=== PATIENT | male | born 1940 | race Caucasian/White ===

== ENCOUNTER 2016-11-03 10:44 | Inpatient (IN) | payer OTHER ==
[~2016-11-03] VITALS: Ht 165.1 cm; Wt 47.1 kg
[~2016-11-03 10:44] MED LIST: AMOXICILLIN500 MG PO; BACTRIM,SEPT1 TABLET PO; BENZONATATE100 MG PO; CEFTIN500 MG PO; CHERATUSSIN AC473 ML PO; CICLOPIROX45 GM TP; CLONAZEPAM1 MG PO; COLACE100 MG PO; ECOTRIN325 MG PO; Ecotrin PO; FLOMAX0.4 M1 PO; IBUPROFEN800 MG PO; JOCK ITCH15 GM TP; LISINOPRIL2.5 MG PO; METFORMIN HCL1000 M1 PO; METFORMIN HCL500 MG PO; MULTIVITAMIN1 EAC2 PO; PHENAZOPYRIDIN200 MG PO; POVIDONE IODINE TP; Q-TUSSIN DM SY240 ML PO; RISPERDAL1 MG PO; RISPERDAL2 M1 PO; RISPERDAL2 MG PO; TAMSULOSIN HCL0.4 MG PO; TYLENOL REGULA325 MG PO; VASELINE454 GM TP; ZESTRIL2.5 MG PO; [UNRECOGNIZED DRUG - OTHER] PO
[2016-11-03 13:21] LABS: EOSINOPHIL (%) 0.3 % (0-5); HEMATOCRIT 36.2 % (38.0-50.0); IMMATURE GRANULOCYTE (%) 0.2 % (0.0-0.7); IMMATURE GRANULOCYTE COUNT 0.2 K/uL; LYMPHOCYTE COUNT 1.6 K/uL (1.0-2.8); MCH 31.2 PG (29.0-34.0); MCHC 34.8 G/DL (30.0-36.0); MCV 89.6 FL (86-99); MEAN PLAT.VOLUME 9.9 uM^3 (9.0-12.4); MONOCYTE (%) 6.2 % (3-12); MONOCYTE COUNT 0.8 K/uL (0-0.8); NEUTROPHIL (%) 80.5 % (45-76); PLATELET COUNT 173 K/uL (156-360); RBC DIS.WIDTH-CV 13.2 % (11.8-14.6); RBC DIS.WIDTH-SD 42.9 % (39-53); RED BLOOD COUNT 4.04 M/uL (4.00-5.50); WHITE BLOOD COUNT 12.5 K/uL (4.1-10.2)
[2016-11-03 13:31] LABS: CHLORIDE 99 mEq/L (99-109); POTASSIUM 3.7 mEq/L (3.7-5.4); SODIUM 133 mEq/L (136-147)
[2016-11-03 13:33] LABS: GLUCOSE 165 mg/dL (70-99)
[2016-11-03 13:34] LABS: ANION GAP 11 MEQ/L (2-14)
[2016-11-03 13:36] LABS: GFR ESTIMATE (CALCULATED) > 59 mL/min/
[2016-11-03 13:37] LABS: UREA NITROGEN (BUN) 18 mg/dL (9-23)
[2016-11-03 13:53] LABS: INTER. NORMALIZED RATIO 1.1; PROTHROMBIN TIME 11.1 (9.2-11.2); PTT 27.5 (25-32)
[2016-11-03] MEDS ORDERED: PROSCAR5 MG PO (14:23)
[2016-11-03] MEDS ORDERED: GLUCOPHAGE XR,500 MG PO (14:25)
[2016-11-03] MEDS ORDERED: INVOKANA300 MG PO (14:25)
[2016-11-03] MEDS ORDERED: SILTUSSIN100 MG/51 PO (14:26)
[2016-11-03 16:20] LABS: EOSINOPHIL (%) 0 % (0-5); HEMATOCRIT 36.3 % (38.0-50.0); IMMATURE GRANULOCYTE (%) 0.2 % (0.0-0.7); IMMATURE GRANULOCYTE COUNT 0.3 K/uL; LYMPHOCYTE COUNT 0.7 K/uL (1.0-2.8); MCH 31.9 PG (29.0-34.0); MCHC 35.3 G/DL (30.0-36.0); MCV 90.5 FL (86-99); MEAN PLAT.VOLUME 9.8 uM^3 (9.0-12.4); MONOCYTE (%) 5.8 % (3-12); MONOCYTE COUNT 0.9 K/uL (0-0.8); NEUTROPHIL (%) 89.1 % (45-76); NEUTROPHIL COUNT 13.1 K/uL (1.8-6.4); PLATELET COUNT 168 K/uL (156-360); RBC DIS.WIDTH-CV 13.2 % (11.8-14.6); RED BLOOD COUNT 4.01 M/uL (4.00-5.50); WHITE BLOOD COUNT 14.7 K/uL (4.1-10.2)
[2016-11-03 19:15] VITALS: BP 139/78
[2016-11-03 19:30] VITALS: BP 146/73
[2016-11-03 20:01] VITALS: BP 136/66
[2016-11-03 20:58] LABS: METH RESISTANT S AUREUS PCR NEGATIVE (NEGATIVE)
[2016-11-03 21:00] VITALS: BP 136/66
[2016-11-03 21:09] LABS: SPECIMEN PROCESSING CONTROL PASS
[2016-11-03 21:10] LABS: PROBE CHECK PASS
[2016-11-03 22:00] VITALS: BP 138/69
[2016-11-03 22:06] LABS: ADD MIUA? YES; BILIRUBIN NEGATIVE; BLOOD LARGE; COLOR YELLOW ((YELLOW)); GLUCOSE (STRIP) >=1000; KETONES 40; LEUKOCYTES NEGATIVE; NITRITE NEGATIVE; PROTEIN (STRIP) NEGATIVE; UROBILINOGEN 0.2 MG/DL (0.2-1.0)
[2016-11-03 22:52] LABS: BACTERIA 1+; CASTS NONE SEEN /LPF; CRYSTALS NONE SEEN; EPITHELIAL CELLS 1+; MUCUS 1+; UCUL ADDED? NO; WHITE BLOOD CELLS 0-5 /HPF (0-5)
[2016-11-03 23:00] VITALS: BP 134/93
[2016-11-04] VITALS (23 sets, daily range): BP systolic 0–154; BP diastolic 0–143
[2016-11-04 05:35] LABS: HEMATOCRIT 37.8 % (38.0-50.0); MCH 30.5 PG (29.0-34.0); MCHC 33.6 G/DL (30.0-36.0); MCV 90.6 FL (86-99); MEAN PLAT.VOLUME 10.3 uM^3 (9.0-12.4); PLATELET COUNT 174 K/uL (156-360); RBC DIS.WIDTH-CV 13.7 % (11.8-14.6); RBC DIS.WIDTH-SD 45.3 % (39-53); RED BLOOD COUNT 4.17 M/uL (4.00-5.50); WHITE BLOOD COUNT 13.5 K/uL (4.1-10.2)
[2016-11-04 05:55] LABS: ALKALINE PHOSPHATASE 78 IU/L (3-129); ANION GAP 16 MEQ/L (2-14); CHLORIDE 98 MEQ/L (99-109); GFR ESTIMATE (CALCULATED) > 59 mL/min/; GLUCOSE 152 mg/dL (70-99); MAGNESIUM 1.6 mg/dl (1.3-2.7); POTASSIUM 3.6 MEQ/L (3.7-5.4); SAMPLE HEMOLYSIS CHECK 0; SAMPLE ICTERIC CHECK 0; SAMPLE LIPEMIA CHECK 0; SODIUM 138 MEQ/L (136-147); TOTAL BILIRUBIN 1.1 MG/DL (0.0-1.0); UREA NITROGEN (BUN) 17 mg/dL (9-23)
[2016-11-04 06:13] LABS: POINT-OF-CARE METER ID UU13113803
[2016-11-04 12:18] LABS: POINT-OF-CARE METER ID UU14174217
[2016-11-04 18:00] LABS: POINT-OF-CARE METER ID UU13113803
[2016-11-05] VITALS (7 sets, daily range): BP systolic 123–144; BP diastolic 56–89
[2016-11-05 00:35] LABS: POINT-OF-CARE METER ID UU14174217
[2016-11-05 06:37] LABS: POINT-OF-CARE METER ID UU13113698
[2016-11-05 06:41] LABS: MCH 30.6 PG (29.0-34.0); MCHC 33.2 G/DL (30.0-36.0); MEAN PLAT.VOLUME 10.6 uM^3 (9.0-12.4); PLATELET COUNT 169 K/uL (156-360); RBC DIS.WIDTH-CV 14.2 % (11.8-14.6); RED BLOOD COUNT 4.02 M/uL (4.00-5.50); WHITE BLOOD COUNT 16.8 K/uL (4.1-10.2)
[2016-11-05 07:25] LABS: ANION GAP 20 MEQ/L (2-14); GFR ESTIMATE (CALCULATED) > 59 mL/min/; GLUCOSE 144 mg/dL (70-99); POTASSIUM 3.9 MEQ/L (3.7-5.4); SAMPLE HEMOLYSIS CHECK 0; SAMPLE ICTERIC CHECK 0; SAMPLE LIPEMIA CHECK 0
[2016-11-05 07:29] LABS: CHLORIDE 108 MEQ/L (99-109); MAGNESIUM 2.1 mg/dl (1.3-2.7); SODIUM 147 MEQ/L (136-147); UREA NITROGEN (BUN) 26 mg/dL (9-23)
[2016-11-05 13:06] LABS: POINT-OF-CARE METER ID UU13113698
[2016-11-06 00:25] VITALS: BP 134/70
[2016-11-06 03:29] VITALS: BP 132/60
[2016-11-06 07:47] LABS: HEMATOCRIT 37.1 % (38.0-50.0); MCH 31.1 PG (29.0-34.0); MCHC 33.2 G/DL (30.0-36.0); MCV 93.7 FL (86-99); PLATELET COUNT 184 K/uL (156-360); RED BLOOD COUNT 3.96 M/uL (4.00-5.50); WHITE BLOOD COUNT 16.7 K/uL (4.1-10.2)
[2016-11-06 08:11] LABS: MAGNESIUM 2.4 mg/dl (1.3-2.7)
[2016-11-06 08:13] VITALS: BP 131/85
[2016-11-06 11:35] VITALS: BP 127/60
[2016-11-06 12:11] LABS: ANION GAP 27 MEQ/L (2-14); CHLORIDE 125 MEQ/L (99-109); GFR ESTIMATE (CALCULATED) > 59 mL/min/; GLUCOSE 178 mg/dL (70-99); POTASSIUM 4.3 MEQ/L (3.7-5.4); SODIUM 162 MEQ/L (136-147); UREA NITROGEN (BUN) 37 mg/dL (9-23)
[2016-11-06 14:59] LABS: ANION GAP 21 MEQ/L (2-14); CHLORIDE 123 MEQ/L (99-109); GFR ESTIMATE (CALCULATED) > 59 mL/min/; GLUCOSE 154 mg/dL (70-99); POTASSIUM 3.8 MEQ/L (3.7-5.4); SAMPLE HEMOLYSIS CHECK 0; SAMPLE ICTERIC CHECK 0; SAMPLE LIPEMIA CHECK 0; SODIUM 159 MEQ/L (136-147); UREA NITROGEN (BUN) 38 mg/dL (9-23)
[2016-11-06 17:09] LABS: COLOR STRAW ((YELLOW)); LEUKOCYTES NEGATIVE; NITRITE NEGATIVE
[2016-11-06 17:10] LABS: ADD MIUA? YES; BILIRUBIN NEGATIVE; BLOOD LARGE; GLUCOSE (STRIP) 1000; KETONES 160; PROTEIN (STRIP) TRACE; UROBILINOGEN 0.2 MG/DL (0.2-1.0)
[2016-11-06 17:37] LABS: EPITHELIAL CELLS NONE SEEN; MUCUS RARE; RED BLOOD CELLS RARE /HPF (0-5); WHITE BLOOD CELLS NONE SEEN /HPF (0-5)
[2016-11-06 17:39] LABS: BACTERIA NONE SEEN; CASTS PRESENT /LPF; CRYSTALS NONE SEEN; HYALINE CASTS RARE /LPF; UCUL ADDED? NO
[2016-11-06 17:58] VITALS: BP 134/80
[2016-11-06 19:54] VITALS: BP 132/78
[2016-11-06 23:28] LABS: POTASSIUM 3.7 mEq/L (3.7-5.4)
[2016-11-06 23:30] LABS: GLUCOSE 231 mg/dL (70-99)
[2016-11-06 23:31] LABS: ANION GAP 20 MEQ/L (2-14); CHLORIDE 128 mEq/L (99-109); SODIUM 163 mEq/L (136-147)
[2016-11-06 23:34] LABS: GFR ESTIMATE (CALCULATED) > 59 mL/min/
[2016-11-06 23:35] LABS: UREA NITROGEN (BUN) 35 mg/dL (9-23)
[2016-11-07] VITALS (7 sets, daily range): BP systolic 123–151; BP diastolic 60–80
[2016-11-07 07:04] LABS: HEMATOCRIT 35.8 % (38.0-50.0); MCH 30.4 PG (29.0-34.0); MCV 92.3 FL (86-99); MEAN PLAT.VOLUME 10.5 uM^3 (9.0-12.4); PLATELET COUNT 201 K/uL (156-360); RBC DIS.WIDTH-CV 15.1 % (11.8-14.6); RBC DIS.WIDTH-SD 50.7 % (39-53); RED BLOOD COUNT 3.88 M/uL (4.00-5.50)
[2016-11-07 07:16] LABS: ANION GAP 20 MEQ/L (2-14); CHLORIDE 119 MEQ/L (99-109); MAGNESIUM 2.4 mg/dl (1.3-2.7); POTASSIUM 3.5 MEQ/L (3.7-5.4); SAMPLE HEMOLYSIS CHECK 0; SAMPLE ICTERIC CHECK 0; SAMPLE LIPEMIA CHECK 0; SODIUM 155 MEQ/L (136-147)
[2016-11-07 07:24] LABS: GFR ESTIMATE (CALCULATED) > 59 mL/min/; GLUCOSE 284 mg/dL (70-99); UREA NITROGEN (BUN) 34 mg/dL (9-23)
[2016-11-07 16:24] LABS: POINT-OF-CARE METER ID UU13113698
[2016-11-07 22:46] LABS: ANION GAP 13 MEQ/L (2-14); CHLORIDE 116 MEQ/L (99-109); GFR ESTIMATE (CALCULATED) > 59 mL/min/; GLUCOSE 313 mg/dL (70-99); POTASSIUM 3.5 MEQ/L (3.7-5.4); SAMPLE HEMOLYSIS CHECK 0; SAMPLE ICTERIC CHECK 0; SAMPLE LIPEMIA CHECK 0; SODIUM 153 MEQ/L (136-147); UREA NITROGEN (BUN) 26 mg/dL (9-23)
[2016-11-08 04:45] VITALS: BP 129/78
[2016-11-08 04:45] LABS: HEMATOCRIT 36.7 % (38.0-50.0); MCH 31.5 PG (29.0-34.0); MCHC 34.1 G/DL (30.0-36.0); MCV 92.4 FL (86-99); MEAN PLAT.VOLUME 10.4 uM^3 (9.0-12.4); PLATELET COUNT 206 K/uL (156-360); RBC DIS.WIDTH-SD 49.1 % (39-53); RED BLOOD COUNT 3.97 M/uL (4.00-5.50); WHITE BLOOD COUNT 11.7 K/uL (4.1-10.2)
[2016-11-08 04:55] LABS: CHLORIDE 119 mEq/L (99-109); POTASSIUM 3.7 mEq/L (3.7-5.4); SODIUM 153 mEq/L (136-147)
[2016-11-08 04:57] LABS: GLUCOSE 314 mg/dL (70-99)
[2016-11-08 04:58] LABS: ANION GAP 14 MEQ/L (2-14)
[2016-11-08 05:01] LABS: GFR ESTIMATE (CALCULATED) > 59 mL/min/
[2016-11-08 05:02] LABS: UREA NITROGEN (BUN) 23 mg/dL (9-23)
[2016-11-08 09:00] VITALS: BP 160/70
[2016-11-08 11:39] LABS: POINT-OF-CARE METER ID UU13113698
[2016-11-08 14:20] VITALS: BP 138/76
[2016-11-08 15:55] VITALS: BP 139/83
[2016-11-08 19:37] VITALS: BP 129/70
[2016-11-08 21:39] LABS: BASE EXCESS 3.2 mEq/L (-3 to +3); BICARBONATE 26.9 mEq/L (22-26); CARBOXY HGB 1.8 % (0-5); COMMENTS - BLOOD GASES C+A+; DEVICE VENTURI MASK; FI02 50 %; METHEMOGLOBIN 1.9 % (0-1.5); O2 FLOW 12 L/MIN; PCO2 37 mm Hg (35-45); PO2 65 mm Hg (80-100); SITE LB; TOTAL RESP RATE 30 resp/min; pH 7.47 (7.35-7.45)
[2016-11-08 23:03] VITALS: BP 103/69
[2016-11-09 00:23] LABS: POINT-OF-CARE METER ID UU13113698
[2016-11-09 04:50] VITALS: BP 100/54
[2016-11-09 07:50] VITALS: BP 76/54
[2016-11-09 11:08] VITALS: BP 80/52
[2016-11-09 13:04] VITALS: BP 90/62
[2016-11-09 16:04] VITALS: BP 96/70
[2016-11-11 08:04] VITALS: BP 139/76
[2016-11-11 15:48] VITALS: BP 130/75
== END 2016-11-11 22:30 | DRG 85 ==
LOC: EME 10:44 → 4EAST 15:50 → 4WEST 15:50 → EDOF 15:50 → 5EAST 15:50 → EDOF 17:15 → 4WEST 19:11 → 4EAST 11-05 03:24 → 5EAST 11-09 16:53
PROVIDERS: Emergency Medicine; Hospitalist; Internal Medicine; Internal Medicine Nephrology; Surgery
DX: S06.5X1A Traumatic subdural hemorrhage with loss of consciousness of 30 minutes or less, initial encounter (principal); J96.91 Respiratory failure, unspecified with hypoxia; R64 Cachexia; R47.01 Aphasia; E87.0 Hyperosmolality and hypernatremia; E44.1 Mild protein-calorie malnutrition; Z68.1 Body mass index [BMI] 19.9 or less, adult; S06.6X1A Traumatic subarachnoid hemorrhage with loss of consciousness of 30 minutes or less, initial encounter; W19.XXXA Unspecified fall, initial encounter; F79 Unspecified intellectual disabilities; D72.829 Elevated white blood cell count, unspecified; R00.0 Tachycardia, unspecified; I10 Essential (primary) hypertension; E11.65 Type 2 diabetes mellitus with hyperglycemia; R50.9 Fever, unspecified; N40.0 Benign prostatic hyperplasia without lower urinary tract symptoms; S02.19XA Other fracture of base of skull, initial encounter for closed fracture; I44.0 Atrioventricular block, first degree; E87.6 Hypokalemia; Y92.120 Kitchen in nursing home as the place of occurrence of the external cause; R33.9 Retention of urine, unspecified; S00.83XA Contusion of other part of head, initial encounter; E86.0 Dehydration; E83.39 Other disorders of phosphorus metabolism; R40.20 Unspecified coma; Z51.5 Encounter for palliative care; Z66 Do not resuscitate
CPT/HCPCS: 36600; 70450; 71010; 71020; 72070; 72100; 72125; 80048; 80048 91; 80053; 80069; 81003; 82803; 82948; 83735; 83880; 83935; 84100; 84300; 85025; 85025 91; 85027; 85610; 85730; 86850; 86900; 86901; 87040; 87077; 87086; 87186; 87641; 87801; 92610 GN; 94640; 94799; 97530 GP; 99202; 99281; 99285; C9113; J0696; J1815; J1940; J1953; J2060; J2270; J3475; J3480; J7040; J7050; J7070; J7120